=== PATIENT | female | born 1930 | race Caucasian/White ===

== ENCOUNTER 2017-07-08 11:10 | Emergency (ER) | payer MEDICARE, OTHER ==
[2017-07-08 11:46] VITALS: BP 144/71
--- NOTE | 2017-07-08 12:07 | UC ---
Dizzy HPI HPI Summary: PATIENT REPORTS INTERMITTENT EPISODES OF DIZZINESS-SHE HAS SEEN HER PROVIDER AND STARTED ON A MEDICATION THAT DID NOT HELP---SATURDAY SHE GOT OUT OF BED AND FELL. SHE LIVES ALONE BUT BELIEVES SHE DID NOT LOOSE CONSCIOUSNESS---SHE IS FRUSTRATED AND WANTS TO KNOW WHAT IS GOING ON - History Of Current Complaint Chief Complaint: UCDizziness Stated Complaint: DIZZY NAUSEA Time Seen by Provider: 07/08/17 11:42 Hx Obtained From: Patient Hx Last Menstrual Period: n/a ?: No Onset/Duration: Lasting Weeks, Worse Since - HAD ANOTHER FALL 2 DAYS AGO Timing: Intermittent Episode Lasting Severity Initially: Moderate Severity Currently: Mild Character: Dizzy Aggravating Factor(s): Nothing Alleviating Factor(s): Nothing Associated Signs And Symptoms: Positive: Nausea - Allergies/Home Medications Allergies/Adverse Reactions: Allergies Allergy/AdvReac Type Severity Reaction Status Date / Time seasonal allergy Allergy Congestion Uncoded 07/08/17 11:46 Home Medications: Home Medications NK [No Home Medications Reported] 07/08/17 [History Confirmed 07/08/17] PMH/Surg Hx/FS Hx/Imm Hx Previously Healthy: Yes - Surgical History Surgical History: Yes Surgery Procedure, Year, and Place: lumpectomy left breast 1964 and ~ 1967. Cataract surgeries and - Family History Known Family History: Positive: None - Social History Occupation: Retired Lives: Alone - HISBAND IS IN SNF Alcohol Use: None Substance Use Type: None Smoking Status (MU): Never Smoked Tobacco Review of Systems Constitutional: Negative Skin: Bruising - LEFT HAND FROM FALL 2 DAYS AGO Eyes: Negative ENT: Negative Respiratory: Negative Cardiovascular: Negative Gastrointestinal: Negative Genitourinary: Negative Motor: Negative Neurovascular: Negative Musculoskeletal: Negative Neurological: Negative Psychological: Negative Is Patient Immunocompromised?: No All Other Systems Reviewed And Are Negative: Yes Physical Exam Triage Information Reviewed: Yes Appearance: Well-Appearing, No Pain Distress, Well-Nourished Vital Signs: Initial Vital Signs Temp 98.4 F 07/08/17 11:39 Pulse 77 07/08/17 11:39 Resp 16 07/08/17 11:39 BP 144/71 07/08/17 11:39 Pulse Ox 96 07/08/17 11:39 Vital Signs Reviewed: Yes Eye Exam: Normal Eyes: Positive: Conjunctiva Clear ENT Exam: Normal ENT: Positive: Normal ENT inspection, Hearing grossly normal, TMs normal. Negative: Nasal congestion, Nasal drainage, Trismus, Muffled/hoarse voice Dental Exam: Normal Neck exam: Normal Neck: Positive: Supple, Nontender, No Lymphadenopathy Respiratory Exam: Normal Respiratory: Positive: Chest non-tender, Lungs clear, Normal breath sounds, No respiratory distress, No accessory muscle use Cardiovascular Exam: Normal Cardiovascular: Positive: RRR, No Murmur, Pulses Normal, Brisk Capillary Refill Musculoskeletal Exam: Normal Musculoskeletal: Positive: Strength Intact, ROM Intact, No Edema Neurological Exam: Normal Neurological: Positive: Alert, Muscle Tone Normal Psychological Exam: Normal Skin Exam: Normal Diagnostics - EKG Cardiac Rate: NL Cardiac Rhythm: Sinus: Normal Ectopy: None ST Segment: Normal Dizzy Course/Dx - Course Course Of Treatment: TRANSFER TO HOSPITAL, PATIENT REFUSED AMBULANCE NEIGHBOR [address] - Differential Dx/Diagnosis Provider Diagnoses: DIZZINESS WITH FALL Discharge - Discharge Plan Condition: Stable Disposition: HOME Patient Education Materials: Fall Prevention for Older Adults (ED), Dizziness ( ED) Referrals: Javier MIRANDA,Ellis Lang [Primary Care Provider] - If Needed Additional Instructions: Please go directly to the emergency department for further evaluation and care
== END 2017-07-08 12:17 | disposition home or self-care (01) ==
LOC: UCCORT 11:10
DX: R42 Dizziness and giddiness (principal); R11.0 Nausea
CPT/HCPCS: 93005; 99211; G0463

== ENCOUNTER 2017-08-17 15:17 | Emergency (ER) | payer MEDICARE, OTHER ==
[2017-08-17 15:28] VITALS: BP 109/64
--- NOTE | 2017-08-17 15:30 | UC ---
Dizzy HPI HPI Summary: 87 year old female presents with dizziness and headache. - History Of Current Complaint Chief Complaint: UCGeneralIllness Stated Complaint: DIZZY/NEAUSEA Time Seen by Provider: 08/17/17 15:30 Hx Obtained From: Patient Hx Last Menstrual Period: n/a Onset/Duration: Sudden Onset Timing: Constant Severity Initially: Moderate Severity Currently: Moderate - Allergies/Home Medications Allergies/Adverse Reactions: Allergies Allergy/AdvReac Type Severity Reaction Status Date / Time seasonal allergy Allergy Congestion Uncoded 08/17/17 16:33 PMH/Surg Hx/FS Hx/Imm Hx Previously Healthy: Yes - Surgical History Surgical History: Yes Surgery Procedure, Year, and Place: lumpectomy left breast 1964 and ~ 1967. Cataract surgeries and - Family History Known Family History: Positive: None - Social History Alcohol Use: None Substance Use Type: None Smoking Status (MU): Never Smoked Tobacco Review of Systems Constitutional: Negative Skin: Negative Eyes: Negative ENT: Negative Respiratory: Negative Cardiovascular: Negative Gastrointestinal: Negative Genitourinary: Negative Motor: Negative Neurovascular: Negative Musculoskeletal: Negative Neurological: Headache, Other - dizziness Psychological: Negative All Other Systems Reviewed And Are Negative: Yes Physical Exam Triage Information Reviewed: Yes Vital Signs: Initial Vital Signs Temp 36.4 C 08/17/17 15:25 Pulse 84 08/17/17 15:25 Resp 16 08/17/17 15:25 BP 109/64 08/17/17 15:25 Pulse Ox 96 08/17/17 15:25 Vital Signs Reviewed: Yes Eye Exam: Normal ENT Exam: Normal Dental Exam: Normal Neck exam: Normal Neck: Positive: 1 Respiratory Exam: Normal Cardiovascular Exam: Normal Abdominal Exam: Normal Musculoskeletal Exam: Normal Neurological: Positive: Fatigued, Lethargic Psychological Exam: Normal Skin Exam: Normal Dizzy Course/Dx - Differential Dx/Diagnosis Provider Diagnoses: dizziness. headache Discharge - Discharge Plan Condition: Stable Disposition: OTHER Discharge Disposition Comment: patient suggested to go to the er. Patient Education Materials: Dizziness (ED) Referrals: Ellis Castillo [Primary Care Provider] - Additional Instructions: patient suggested to go to the er for memory loss and dizziness.
== END 2017-08-17 15:48 ==
LOC: UCCORT 15:17
DX: R42 Dizziness and giddiness (principal); R51 Headache
CPT/HCPCS: 99212; G0463

== ENCOUNTER → 2017-08-17 16:29 | Emergency (ER) | payer MEDICARE, OTHER ==
[~2017-08-17 16:29] MED LIST: Levofloxacin TAB* 500 MG PO ONE; Meclizine TAB* 12.5 MG PO ONE
[2017-08-17 18:39] LABS: Hematocrit 45 % (35-47); Hemoglobin 15.4 g/dl (12.0-16.0); Mean Corpuscular HGB Conc 34 g/dl (31-36); Mean Corpuscular Hemoglobin 32 pg (27-31); Mean Corpuscular Volume 94 fL (80-97); Mean Platelet Volume 9 um3 (7.4-10.4); Red Blood Count 4.82 10^6/ul (4.0-5.4); Red Cell Distribution Width 13 % (10.5-15); White Blood Count 7.7 10^3/ul (3.5-10.8)
[2017-08-17 18:49] LABS: Albumin 4.5 g/dL (3.2-5.2); BUN/Creatinine Ratio 19.5 (8-20); EGFR African American 79.2 (>60); EGFR Non-African American 61.6 (>60); Globulin 2.7 g/dL (2-4); Potassium 4.4 mmol/L (3.5-5.0); Total Bilirubin 0.5 mg/dL (0.2-1.0); Total Protein 7.2 g/dL (6.4-8.9)
--- NOTE | 2017-08-17 20:28 | RAD ---
INDICATION: Dizziness. COMPARISON: There are no prior studies available for comparison. TECHNIQUE: A portable view of the chest was obtained. FINDINGS: The heart appears mildly enlarged. The lungs are underinflated and clear. No pleural effusion is seen. IMPRESSION: NO EVIDENCE FOR ACUTE FINDING.
--- NOTE | 2017-08-17 20:34 | RAD ---
INDICATION: Dizziness. COMPARISON: There are no prior studies available for comparison. TECHNIQUE: Contiguous axial sections of the brain were obtained from the skull base to the vertex without contrast. FINDINGS: The ventricles, cisterns and sulci are enlarged consistent with diffuse atrophy. There are small areas of decreased density in the subcortical and periventricular white matter suggestive of mild chronic small vessel ischemic changes. No other focal abnormality or mass effect is seen. There is no evidence for hemorrhage. There is mild mucosal thickening within the ethmoid air cells. The visualized portion of the sinuses and mastoid air cells otherwise appear clear. IMPRESSION: 1. NO EVIDENCE FOR GROSS ACUTE INFARCT, MASS EFFECT OR HEMORRHAGE. 2. FINDINGS CONSISTENT WITH MILD CHRONIC SMALL VESSEL ISCHEMIC CHANGES.
[2017-08-17 20:37] LABS: Magnesium 2.4 mg/dL (1.9-2.7)
[2017-08-17 20:40] LABS: Troponin I 0.01 ng/mL (<0.04)
[2017-08-17 22:22] LABS: Urine Bacteria Absent (Absent); Urine Bilirubin Negative (Negative); Urine Glucose Negative (Negative); Urine Nitrite Negative (Negative)
[2017-08-17 23:18] VITALS: BP 145/72
--- NOTE | 2017-08-18 00:18 | ED ---
Norma Frey Thomas, scribed for Marty Luis on 08/17/17 at 1943 . Dizziness - HPI Summary HPI Summary: The pt is an 87 y/o F presenting to the ED c/o dizziness characterized as room- spinning that began one week ago. The dizziness is aggravated by ambulation and head movement. It is alleviated by nothing. The patient has treated the dizziness with nothing [employer]. Pt additionally c/o vomiting (x1 yesterday). Pt denies CP, SOB, fever, and urinary frequency. - History Of Current Complaint Chief Complaint: EDDizziness Stated Complaint: DIZZY COMING FROM [place] Time Seen by Provider: 08/17/17 19:15 Hx Obtained From: Patient Onset/Duration: Still Present Timing: Weeks - 1 Severity Currently: Moderate Character: Room Spinning Aggravating Factor(s): Change In Head Position, Other - Ambulation Associated Signs And Symptoms: Positive: Other: - Vomiting; NEGATIVE: CP, SOB, fever, urinary frequency. - Allergies/Home Medications Allergies/Adverse Reactions: Allergies Allergy/AdvReac Type Severity Reaction Status Date / Time seasonal allergy Allergy Congestion Uncoded 08/17/17 16:33 PMH/Surg Hx/FS Hx/Imm Hx Previously Healthy: No Cardiovascular History: Denies: Hx Myocardial Infarction Neurological History: Denies: Hx CVA - Surgical History Surgery Procedure, Year, and Place: lumpectomy left breast 1964 and ~ 1967. Cataract surgeries and Infectious Disease History: No Infectious Disease History: Denies: Traveled Outside the [place] in Last 30 Days - Family History Known Family History: Positive: Other - Patient denies any FHx - Social History Lives: With Family Alcohol Use: None Substance Use Type: Reports: None Smoking Status (MU): Never Smoked Tobacco Review of Systems Negative: Fever Negative: Chest Pain Negative: Shortness Of Breath Positive: Vomiting Negative: frequency Neurological: Other - Dizziness All Other Systems Reviewed And Are Negative: Yes Physical Exam - Summary Physical Exam Summary: Appearance: Well-appearing, Well-nourished Skin: Warm Eyes: Normal ENT: Normal Neck: Supple, nontender Respiratory: Clear to auscultation Cardiovascular: Normal Abdomen: Soft, nontender Bowel: Present Musculoskeletal: Normal, Strength/ROM Intact Neurological: Normal, A&Ox3 Psychiatric: Normal Triage Information Reviewed: Yes Vital Signs On Initial Exam: Initial Vitals Temp Pulse Resp BP Pulse Ox 97.5 F 80 16 136/76 96 08/17/17 16:33 08/17/17 16:33 08/17/17 16:33 08/17/17 16:33 08/17/17 16:33 Vital Signs Reviewed: Yes - Jim Coma Scale Coma Scale Total: 15 Diagnostics - Vital Signs Vital Signs Temp Pulse Resp BP Pulse Ox 08/17/17 18:58 74 12 94 08/17/17 16:33 97.5 F 80 16 136/76 96 - Laboratory Lab Results: Lab Results 08/17/17 08/17/17 Range/Units 18:20 18:20 WBC 7.7 (3.5-10.8) 10^3/ul RBC 4.82 (4.0-5.4) 10^6/ul Hgb 15.4 (12.0-16.0) g/dl Hct 45 (35-47) % MCV 94 (80-97) fL MCH 32 H (27-31) pg MCHC 34 (31-36) g/dl RDW 13 (10.5-15) % Plt Count 181 (150-450) 10^3/ul MPV 9 (7.4-10.4) um3 Neut % (Auto) 70.7 (38-83) % Lymph % (Auto) 20.8 L (25-47) % [place] % (Auto) 7.7 (1-9) % Eos % (Auto) 0.4 (0-6) % Baso % (Auto) 0.4 (0-2) % Absolute Neuts (auto) 5.4 (1.5-7.7) 10^3/ul Absolute Lymphs (auto) 1.6 (1.0-4.8) 10^3/ul Absolute Monos (auto) 0.6 (0-0.8) 10^3/ul Absolute Eos (auto) 0 (0-0.6) 10^3/ul Absolute Basos (auto) 0 (0-0.2) 10^3/ul Absolute Nucleated RBC 0 10^3/ul Nucleated RBC % 0 Sodium 133 (133-145) mmol/L Potassium 4.4 (3.5-5.0) mmol/L Chloride 97 L (101-111) mmol/L Carbon Dioxide 28 (22-32) mmol/L Anion Gap 8 (2-11) mmol/L BUN 17 (6-24) mg/dL Creatinine 0.87 (0.51-0.95) mg/dL Est GFR ( Amer) 79.2 (>60) Est GFR (Non-Af Amer) 61.6 (>60) BUN/Creatinine Ratio 19.5 (8-20) Glucose 105 H (70-100) mg/dL Calcium 10.0 (8.6-10.3) mg/dL Total Bilirubin 0.50 (0.2-1.0) mg/dL AST 16 (13-39) U/L ALT 13 (7-52) U/L Alkaline Phosphatase 40 (34-104) U/L Total Protein 7.2 (6.4-8.9) g/dL Albumin 4.5 (3.2-5.2) g/dL Globulin 2.7 (2-4) g/dL Albumin/Globulin Ratio 1.7 (1-3) Result Diagrams: 08/17/17 18:20 08/17/17 18:20 Lab Statement: Any lab studies that have been ordered have been reviewed, and results considered in the medical decision making process. - Radiology CXR Xray Interpretation: No Acute Changes - NO EVIDENCE FOR ACUTE FINDING. ED physician has reviewed this report and agrees. Radiology Interpretation Completed By: Radiologist - CT CT Brain CT Interpretation: No Acute Changes - 1. NO EVIDENCE FOR GROSS ACUTE INFARCT, MASS EFFECT OR HEMORRHAGE. 2. FINDINGS CONSISTENT WITH MILD CHRONIC SMALL VESSEL ISCHEMIC CHANGES. ED physician has reviewed this report and agrees. CT Interpretation Completed By: Radiologist - EKG 19:56 EKG Rhythm: Sinus Rhythm EKG Interpretation: 63 BPM. No acute changes. Re-Evaluation - Re-Evaluation First Eval Re-Evaluation Time: 22:48 Change: Improved Comment: She feels better with Meclizine. Dizzy Course/Dx - Course Assessment/Plan: The pt is an 87 y/o F c/o dizziness characterized as room- spinning that began one week ago. CT Brain, Bloodwork, EKG, and UA were obtained. Urine shows mild UTI. She feels better with meclizine. She will be discharged home with a prescription for meclizine and antibiotics, with follow up from primary care. - Diagnoses Differential Diagnosis/HQI/PQRI: Anxiety, Dysrhythmia, Labyrinthitis, Other - vertigo/uti/tia/intracranial bleeding Provider Diagnoses: UTI (urinary tract infection), Dizziness Discharge - Discharge Plan Condition: Stable Disposition: HOME Prescriptions: Levofloxacin TAB* [Levaquin TAB*] 500 mg PO DAILY 4 Days tab Meclizine TAB* [Antivert 12.5 TAB*] 12.5 mg PO TID #20 tab Patient Education Materials: Urinary Tract Infection in Women (ED), Dizziness ( ED) Referrals: Ellis Castillo [Primary Care Provider] - 3 Days Additional Instructions: PLEASE MAKE AN APPOINTMENT TO SEE YOUR PRIMARY CARE DOCTOR TO BE SEEN WITHIN 3- 4 DAYS. PLEASE RETURN TO THE ED FOR ANY WORSENING OR CONCERNING SYMPTOMS. The documentation as recorded by the Norma mcnamara Thomas accurately reflects the service I personally performed and the decisions made by , Marty Luis.
== END | disposition home or self-care (01) ==
LOC: ED 16:29
DX: N39.0 Urinary tract infection, site not specified (principal); R42 Dizziness and giddiness
CPT/HCPCS: 36415; 70450; 71010; 80053; 81003; 81015; 83735; 84484; 85025; 87086; 87502; 93005; 99283; A9270-GY